=== PATIENT | female | born 1975 | race Caucasian/White ===

== ENCOUNTER → 2017-09-24 16:41 | Outpatient (CLI) | payer OTHER, SELFPAY ==
[2017-10-09 10:39] LABS: HPV APTIMA, High Risk Negative (Negative)
== END ==
PROVIDERS: Visit Provider Nurse Practitioner Women's Health
DX: Z12.4 Encounter for screening for malignant neoplasm of cervix (principal)
CPT/HCPCS: 88175; G0145